=== PATIENT | female | born 1995 | race Caucasian/White ===

== ENCOUNTER 2019-02-05 16:31 | Emergency (ER) | payer MEDICARE ==
[~2019-02-05] VITALS: Ht 167.6 cm; Wt 104.3 kg
--- OUTSIDE RECORDS SUMMARY | 2019-02-05 16:34 | XMS REPORT | Summary of Care ---
Author Author DEBORA ADAN N.P. Organization Unknown Address Unknown Phone Unavailable Care Team Providers Care Log Cooker Name Role Phone DEBORA ADAN N.P. Unavailable Unavailable Unavailable Unavailable Functional Status Name Dates Details Functional status health issues are not documented Status: Name Dates Details Cognitive status health issues are not documented Status: Problems Name Dates Details Possible , not yet confirmed (V72.40, Z32.00) Status: Active Panic disorder (300.01, F41.0) Status: Active Bipolar affective disorder, currently depressed, moderate (296.52, F31.32) Status: Active Severe dysmenorrhea (625.3, N94.6) Status: Active Surveillance of other contraceptive method (V25.49, Z30.49) Status: Active Major depressive disorder with single episode, 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 Quantity: 30 ELDER-FOSTER N.P., DEBORA * Start : 14-Aug-2017 Active Microgestin 1.5/30 1.5-30 MG-MCG Oral Tablet TAKE 1 TABLET BY MOUTH DAILY DIRECTED * Quantity: 21 Refills: 5 ELDER-FOSTER N.P., DEBORA * Start : 18-May-2017 Active buPROPion HCl ER (XL) 150 MG Oral Tablet Extended Release 24 Hour 1 tablet daily * Quantity: 30 Refills: 3 ELDER-FOSTER N.P., DEBORA * Start : 19-Jan-2018 Active clonazePAM 0.5 MG Oral Tablet TAKE 1/2- 1 TABLET BY MOUTH TWICE A DAY NEEDED * Quantity: 60 Refills: 1 ELDER-FOSTER N.P., DEBORA * Start : 19-Jan-2018 Active Allergies and Adverse Reactions Name Dates Details morphine (Allergy) Reaction: Rash Status: Active Procedures Procedure Dates Details History of Oral surgery Completed Immunization Name Dates Details Immunizations not documented Family History Name Dates Details Family history of ovarian cyst (V18.7, Z84.2) Status: Active Name Dates Details Family history of hypertension (V17.49, Z82.49) Status: Active Family history of alcoholism (V17.0, Z81.1) Status: Active Social History Name Dates Details - Status: Name Dates Details Never smoker Vital Signs Date Test Result Details No Known Vitals to report Results Date Description Value Details Results not documented Plan of Care Name Dates Details Planned Observations Planned Goals not documented Interventions Provided Medication Changes* clonazePAM 0.5 MG Oral Tablet - Start Plan* Bipolar- Stop Aripiprazole by decreasing dose by 1/2 a pill tonight and for the next 3 nights and the stop. Decrease Fluoxetine to 40 mg daily and start Bupropion 150 mg daily. Return to clinic 1 month. Get Counseling services at [facility] [phone] * panic disorder- use Clonazepam prior to going to work and as needed for panic. Instructions Name Dates Details Instructions not documented Encounters Appointment; DEBORA ADAN NP Encounter Diagnosis: Problem not documented On: 14-Feb-2017 11:30 Appointment; DEBORA ADAN NP Encounter Diagnosis: Problem not documented On: 18-May-2017 11:30 Appointment; DEBORA ADAN NP Encounter Diagnosis: Problem not documented On: 02-Nov-2017 13:30 Appointment; DEBORA ADAN NP Encounter Diagnosis: Problem not documented On: 09-Nov-2017 10:30 Appointment; DEBORA ADAN NP Encounter Diagnosis: Problem not documented On: 08-Dec-2017 11:30 Appointment; DEBORA ADAN NP Encounter Diagnosis: Problem not documented On: 22-Dec-2017 11:30 Appointment; DEBORA ADAN NP Encounter Diagnosis: Problem not documented On: 19-Jan-2018 11:00
--- OUTSIDE RECORDS SUMMARY | 2019-02-05 16:34 | XMS REPORT | Encounter Summary ---
Author Organization Unknown Address [address] [place] [address] Phone [phone] Reason for Visit Medical Complaint Instructions 1. Acute upper respiratory infection upper respiratory infection (cold): care instructions fluticasone 50 mcg/actuation nasal spray,suspension Bromfed DM 2 mg-30 mg-10 mg/5 mL syrup rapid strep group A, throat 2. Feeling feverish rapid flu (A+B) 3. Body mass index 30+ - obesity A healthy lifestyle: care instructions Discussion Note: None recorded. Plan of Care Patient Instructions - Promote drainage by avoiding irritants. - Saline irrigation of sinuses - Humidified air can improve mucus clearance - Increase fluids - Analgesics for pain and fever as needed Seek care with PCP/Urgent Care/ER or return to [facility] if symptoms worsen. Reminders Provider Appointments None recorded. Lab Rapid Strep Group a, Throat 11/15/2017 [facility] Rapid Flu (A+B) 11/15/2017 [facility] Referral None recorded. Procedures None recorded. Surgeries None recorded. Imaging None recorded. Medications Name Start Date Bromfed DM 2 mg-30 mg-10 mg/5 mL syrup Take 10 mL every 4 hours by oral route as needed. fluoxetine 20 mg capsule TK ONE C PO D fluoxetine 40 mg capsule fluticasone 50 mcg/actuation nasal spray,suspension [place] 1 spray every day by intranasal route. Microgestin 1.5/30 (21) 1.5 mg-30 mcg tablet Medications Administered None recorded. Vitals Height Weight BMI Blood Pressure 5 ft 6 in 212 lbs 34.2 kg/m2 118/80 mm[Hg] Lab Results Date Name Specimen Result Interpretation Description Value Range Status Address Rapid Flu (A+B) Influenza a negative [facility]: [address] [place] [address] Influenza B negative [facility]: [address] [place] [address] Rapid Strep Group a, Throat Result negative [facility]: [address] [place] [address] Swab Location Left and Right tonsillar pillars [facility]: [address] [place] [address] Allergies Code Code System Name Reaction Severity Status Onset 7052 RxNorm Morphine Flushing Moderate Active Problems No Known Problems Procedures Date Name Performed by Tonsillectomy and Adenoidectomy Information not available Vaccine List Vaccine Type influenza, injectable, quadrivalent 05/09/2017 Tdap 07/09/2011 Social History Smoking Status Never Smoker Past Encounters 11/15/2017 Acute Upper Respiratory Infection; Feeling Feverish; Body Mass Index 30+ - Obesity Maria Elena Derek, [facility]-C: [address] [place] [address], Ph. History of Present Illness Oplok-Sbailefrdg-Pznxsdh Reported By: Patient HPI: Location: head/sinuses, throat. Quality: productive cough, sore throat, colored phlegm, nasal/sinus congestion. Duration: 2days. Onset/Timing: sudden. Context: no sick contacts, no foreign travel, non-smoker. Modifying factors: OTC medication; has been on antibiotics for what seems like "every other month or every 2 months". had 1 pill of augmentin left over and took it without improvement. Associated Symptoms: no shortness of breath, no wheezing, no change in number of pillows needed to sleep at night, no sweats, no significant weight gain, no significant weight loss, no morning cough, no vomiting, no diarrhea, no rash, no nausea, no fever, no headache, yellow sputum, fatigue, sore throat, fever, muscle aches; ear pain Review of Systems:ROS as noted in the HPI Review of Systems Basic Reported By: Patient Physical Exam Adult Basic, Adult Female Complete, 14-21 Yr Females Reported By: Patient Constitutional: General Appearance: healthy-appearing, well-nourished, well-developed. Level of Distress: NAD. Ambulation: ambulating normally Psychiatric: Mental Status: active and alert. Orientation: to time, to place, to person Eyes: Lids and Conjunctivae: non-injected, no discharge, no pallor Fps-Tckg-Vztwa-Throat: Ears: no lesions on external ear, no outer ear tenderness, EACs clear, TM opacified. Hearing: no hearing loss. Nose: no lesions on external nose, nares patent, no septal deviation, nasal passages clear, no sinus tenderness, nasal discharge--rhinorrhea, post nasal drip. Lips, Teeth, and Gums: no mouth or lip ulcers, no bleeding gums, normal dentition. Oropharynx: moist mucous membranes, no exudates, erythema, tonsils absent Lungs: Respiratory effort: no dyspnea, no tachypnea, no use of accessory muscles, no intercostal retractions. Auscultation: breath sounds normal Cardiovascular: Heart Auscultation: RRR, no murmurs
--- OUTSIDE RECORDS SUMMARY | 2019-02-05 16:34 | XMS REPORT ---
Author Author [facility] Address Unknown Phone Unavailable Care Team Providers Care Mechanical Service Specialist Name Role Phone Unavailable Unavailable Payers Payer Name Policy Type Policy Number Effective Date Expiration Date Problems This patient has no known problems. Allergies, Adverse Reactions, Alerts This patient has no known allergies or adverse reactions. Medications This patient has no known medications.
--- OUTSIDE RECORDS SUMMARY | 2019-02-05 16:34 | XMS REPORT | Encounter Summary ---
Author Organization Unknown Address [address] [place] [address] Phone [phone] Reason for Visit Medical Complaint Instructions 1. Gastroenteritis gastroenteritis: care instructions ondansetron 4 mg disintegrating tablet Discussion Note Pt in NAD, understands all information provided Plan of Care Patient Instructions Pt will take meds as prescribed with 8oz glass of water. And consume OTC pedialyte to prevent dehydration. Please seek care (PCP, Urgent Care, ER) or return to [facility] if symptoms get worse or do not resolve in 1 week. Reminders Provider Appointments None recorded. Lab None recorded. Referral None recorded. Procedures None recorded. Surgeries None recorded. Imaging None recorded. Medications Name Start Date ondansetron 4 mg disintegrating tablet Take 1 tablet every 8 hours by oral route as needed for 5 days. Medications Administered None recorded. Vitals Height Weight Blood Pressure 5 ft 6 in 118/80 mm[Hg] Lab Results None recorded. Allergies Code Code System Name Reaction Severity Status Onset 7052 RxNorm Morphine Flushing Moderate Active Problems No Known Problems Procedures Date Name Performed by Tonsillectomy and Adenoidectomy Information not available Vaccine List Vaccine Type influenza, injectable, quadrivalent 05/09/2017 Tdap 07/09/2011 Social History Smoking Status Never Smoker Past Encounters 10/08/2018 Gastroenteritis Henny Price NP-C: [address] [place] [address], Ph. History of Present Illness Oqqalq-Siuprkpf-Yvetwjat / Abdominal Pain Reported By: Patient HPI: Quality: watery. Severity: moderate. Onset/Timin-3 times a day. Context: no one else with similar symptoms, no recent camping, no recent picnic, no possible food sources, no recent travel, possible food source. Associated Symptoms: no excess gas, no rash, no joint pain, no weight loss, no heartburn, no blood in stool, no mucus in stool, no black or tarry stools, no nutrient deficiency, no feeling of fullness/mass in throat, no muscle aches, no bitter taste in the mouth, no difficulty swallowing (dysphagia), abdominal pain, fever/chills, nausea, vomiting, weakness, headache Review of Systems:ROS as noted in the HPI Review of Systems Basic Reported By: Patient Physical Exam Adult Basic, Adult Female Complete, 14-21 Yr Females Reported By: Patient Constitutional: General Appearance: healthy-appearing, well-nourished, well-developed. Level of Distress: NAD. Ambulation: ambulating normally Psychiatric: Mental Status: active and alert, normal affect, normal mood. Orientation: to time, to place, to person Abdomen: Bowel Sounds: normal. Inspection and Palpation: epigastric tenderness, RLQ tenderness. Liver: non-tender, no hepatomegaly. Spleen: non-tender, no splenomegaly. Hernia: none palpable. Palpation: (normal) bowel sounds
--- OUTSIDE RECORDS SUMMARY | 2019-02-05 16:34 | XMS REPORT ---
Author Author Admin, [place] Organization [facility] Address Unknown Phone Unavailable Allergies, Adverse Reactions, Alerts Allergy Name Reaction Description Start Date Severity Status Provider Allergies Unknown Conditions or Problems Problem Name Problem Code Onset Date Status Entry Date Provider Comment Standard Description Annotate Problems Unknown Medication List Medication Instructions Start Date Stop Date Generic Name NDC Status Provider Patient Instruction Drug Treatment Unknown - unknown Diagnostic Results Date Name Value Unit Range Description Internal Other: - Chemistry beta HCG, urine, semiquantitative negative
--- OUTSIDE RECORDS SUMMARY | 2019-02-05 16:34 | XMS REPORT | Continuity of Care Document ---
Author Author [employer] Address Unknown Phone Unavailable Care Team Providers Care Home Restoration Service Supervisor Name Role Phone [employer] Unavailable Unavailable Problems Problem Status Onset Date Classification Date Reported Comments Source Gastroenteritis 10/09/2018 Diagnosis 10/09/2018 [facility] Body mass index 30+ - obesity 11/15/2017 Diagnosis 11/15/2017 [facility] Feeling feverish 11/15/2017 Diagnosis 11/15/2017 [facility] Acute upper respiratory infection 11/15/2017 Diagnosis 11/15/2017 [facility] Acute sinusitis 04/17/2017 Diagnosis 04/17/2017 [facility] Acute pharyngitis 04/17/2017 Diagnosis 04/17/2017 [facility] Cough 04/17/2017 Diagnosis 04/17/2017 [facility] Medications Medication Details Route Status Patient Instructions Ordering Provider Order Date Source Amoxicillin 875 MG / Clavulanate 125 MG Oral Tablet amoxicillin 875 mg-potassium clavulanate 125 mg tablet Take 1 tablet every 12 hours by oral route with meals for 10 days. Active [facility] benzonatate 100 MG Oral Capsule benzonatate 100 mg capsule Take 1 capsule 3 times a day by oral route as needed for 10 days. Active [facility] Fluticasone propionate 0.05 MG/ACTUAT Metered Dose Nasal [place] fluticasone 50 mcg/actuation nasal spray,suspension [place] 1 spray every day by intranasal route. Active [facility] Fluoxetine 20 MG Oral Capsule [Prozac] Prozac 20 mg capsule Take 1 capsule every day by oral route. Active [facility] Ondansetron 4 MG Disintegrating Oral Tablet ondansetron 4 mg disintegrating tablet Take 1 tablet every 8 hours by oral route as needed for 5 days. Active [facility] Brompheniramine Maleate 0.4 MG/ML / Dextromethorphan Hydrobromide 2 MG/ML / Pseudoephedrine Hydrochloride 6 MG/ML Oral Solution [Bromfed DM] Bromfed DM 2 mg-30 mg-10 mg/5 mL syrup Take 10 mL every 4 hours by oral route as needed. Active [facility] Fluoxetine 20 MG Oral Capsule fluoxetine 20 mg capsule TK ONE C PO D Active [facility] Fluoxetine 40 MG Oral Capsule fluoxetine 40 mg capsule Active [facility] Ethinyl Estradiol 0.03 MG / norethindrone acetate 1.5 MG Oral Tablet Microgestin 1.5/30 (21) 1.5 mg-30 mcg tablet Active [facility] Drug Treatment Unknown - unknown Active [facility] Allergies, Adverse Reactions, Alerts Substance Category Reaction Severity Reaction type Status Date Reported Comments Source Morphine Flushing Moderate Allergy to substance 04/17/2017 [facility] Allergies Unknown propensity to adverse reactions [facility] Immunizations Immunization Date Given Site Status Last Updated Comments Source influenza, injectable, quadrivalent 05/09/2017 completed [facility] Tdap 07/09/2011 completed [facility] Results Order Name Results Value Reference Range Date Interpretation Comments Source Influenza A negative 11/15/2017 [facility] Influenza B negative 11/15/2017 [facility] RESULT negative 11/15/2017 [facility] SWAB LOCATION Left and Right tonsillar pillars 11/15/2017 [facility] beta HCG, urine, semiquantitative negative 10/23/2017 [facility] RESULT negative 04/17/2017 [facility] SWAB LOCATION Left and Right tonsillar pillars 04/17/2017 [facility] Influenza A negative 04/17/2017 [facility] Influenza B negative 04/17/2017 [facility] Pathology Reports No Data Provided for This Section Diagnostic Reports No Data Provided for This Section Consultation Notes No Data Provided for This Section Discharge Summaries No Data Provided for This Section History and Physicals No Data Provided for This Section Vital Signs Vital Sign Value Date Comments Source Diastolic (mm Hg) 80 10/08/2018 [facility] Height 66 10/08/2018 [facility] Systolic (mm Hg) 118 10/08/2018 [facility] Diastolic (mm Hg) 80 11/15/2017 [facility] Height 66 11/15/2017 [facility] Systolic (mm Hg) 118 11/15/2017 [facility] Weight 212 11/15/2017 [facility] Diastolic (mm Hg) 78 04/17/2017 [facility] Height 66 04/17/2017 [facility] Systolic (mm Hg) 118 04/17/2017 [facility] Weight 210 04/17/2017 [facility] Encounters Location Location Details Encounter Type Encounter Number Reason For Visit Attending Provider ADM Date DC Date Status Source [place] - [facility] - [id number] Samantha [place], ELECTRO MECHANICAL TECHNICIAN: [address] [place] [address], Ph. [id number] Samantha Faiza 04/17/2017 [facility] [place] - [facility] - [id number] Maria Elena Derek, INSTRUMENT TECHNICIAN-C: [address] [place] [address], Ph. [phone] [id number] Maria Elena Derek 11/15/2017 [facility] [place] - [facility] - [id number] Henny Price, ELECTRO MECHANICAL TECHNICIAN-C: [address] [place] [address], Ph. [id number] Henny Price 10/08/2018 [facility] Procedures Procedure Code Date Perfomer Comments Source Tonsillectomy and Adenoidectomy [facility] Assessment and Plan No Data Provided for This Section Plan of Care No Data Provided for This Section Social History Social History Date Source Smoking Status Never Smoker 04/17/2017 [facility] Family History No Data Provided for This Section Advance Directives No Data Provided for This Section Functional Status No Data Provided for This Section
--- OUTSIDE RECORDS SUMMARY | 2019-02-05 16:34 | XMS REPORT | Encounter Summary ---
Author Organization Unknown Address [address] [place] [address] Phone [phone] Reason for Visit Medical Complaint Instructions 1. Acute sinusitis sinusitis: care instructions fluticasone 50 mcg/actuation nasal spray,suspension amoxicillin 875 mg-potassium clavulanate 125 mg tablet rapid flu (A+B) 2. Acute pharyngitis sore throat: care instructions rapid strep group A, throat 3. Cough cough: care instructions benzonatate 100 mg capsule 4. Body mass index 30+ - obesity eating healthy foods: care instructions Discussion Note F/U with your PCP within 3-5 days if s/s continue or worsen. Handout that was given and reviewed and pt verbalized understanding. For worsenening symptoms or shortness/ chest pain develop F/U with ER ISAAK. Plan of Care Patient Instructions Take charge of your health handout given and discussed. Reminders Provider Appointments None recorded. Lab Rapid Flu (A+B) 04/17/2017 [facility] Rapid Strep Group a, Throat 04/17/2017 [facility] Referral None recorded. Procedures None recorded. Surgeries None recorded. Imaging None recorded. Medications Name Start Date amoxicillin 875 mg-potassium clavulanate 125 mg tablet Take 1 tablet every 12 hours by oral route with meals for 10 days. benzonatate 100 mg capsule Take 1 capsule 3 times a day by oral route as needed for 10 days. fluticasone 50 mcg/actuation nasal spray,suspension [place] 1 spray twice a day by intranasal route as directed. Prozac 20 mg capsule Take 1 capsule every day by oral route. Medications Administered None recorded. Vitals Height Weight BMI Blood Pressure 5 ft 6 in 210 lbs 33.9 kg/m2 118/78 mm[Hg] Lab Results Date Name Specimen Result Interpretation Description Value Range Status Address Rapid Strep Group a, Throat Result negative [facility]: [address] [place] [address] Swab Location Left and Right tonsillar pillars [facility]: [address] [place] [address] Rapid Flu (A+B) Influenza a negative [facility]: [facility] Influenza B negative [facility]: [facility] Allergies Code Code System Name Reaction Severity Status Onset 7052 RxNorm Morphine Flushing Moderate Active Problems None recorded. Procedures Date Name Performed by Tonsillectomy and Adenoidectomy Information not available Vaccine List None recorded. Social History Smoking Status Never Smoker Past Encounters 04/17/2017 Acute Sinusitis; Acute Pharyngitis; Cough; Body Mass Index 30+ - Obesity Samantha Kendall, [employer] [facility]: [address] [place] [address], Ph. History of Present Illness Erumz-Quzcjthzdd-Mjrnonh Reported By: Patient HPI: Location: head/sinuses, throat. Quality: sore throat, nasal/sinus congestion, dry cough. Duration: 7days. Severity: moderate. Onset/Timing: gradual. Context: no sick contacts, no foreign travel, non-smoker. Modifying factors: OTC medication. Associated Symptoms: no sputum production, no shortness of breath, no wheezing, no change in number of pillows needed to sleep at night, no sweats, no significant weight gain, no significant weight loss, no morning cough, no vomiting, no diarrhea, no rash, no nausea, no fever, sore throat, muscle aches, headache; chills Review of Systems Basic Reported By: Patient Gkyl-Pqyo-Umopq-Throat: Ears: ear pain Neurologic: Neurologic: no dizziness Physical Exam Adult Basic, Adult Female Complete, 14-21 Yr Females Reported By: Patient Constitutional: General Appearance: obese. Level of Distress: NAD. Ambulation: ambulating normally Psychiatric: Mental Status: active and alert. Orientation: to time, to place, to person Eyes: Lids and Conjunctivae: non-injected, no discharge, no pallor. Pupils: PERRLA. Sclerae: non-icteric Qil-Mkus-Lebvh-Throat: Ears: no lesions on external ear, no outer ear tenderness, EACs clear, TMs clear. Hearing: no hearing loss. Nose: no lesions on external nose, nares patent, no septal deviation, nasal passages clear, sinus tenderness, nasal discharge--rhinorrhea, post nasal drip. Lips, Teeth, and Gums: no mouth or lip ulcers. Oropharynx: moist mucous membranes, no exudates, erythema, tonsils absent Neck: Neck: supple. Lymph Nodes: anterior cervical LAD Lungs: Respiratory effort: no dyspnea, no tachypnea, no use of accessory muscles, no intercostal retractions. Auscultation: breath sounds normal Cardiovascular: Heart Auscultation: RRR, no murmurs Neurologic: Gait and Station: normal gait, normal station
[2019-02-05 17:40] LABS: BASOPHILS # (AUTO) 0.1 (0.0-0.1); BASOPHILS % 0.5 % (0.0-1.0); EOSINOPHILS # (AUTO) 0.1 (0.0-0.4); EOSINOPHILS % 1.2 % (0.0-6.0); HEMATOCRIT 37.4 % (34.2-44.1); HEMOGLOBIN 12.5 g/dL (12.0-16.0); LYMPHOCYTES % 21.4 % (18.0-39.1); MEAN CORPUSCULAR HEMOGLOBIN 29.1 pg (28-32); MEAN CORPUSCULAR HGB CONC 33.4 g/dL (31-35); MONOCYTES # (AUTO) 0.6 (0.2-0.8); MONOCYTES % 6.2 % (4.4-11.3); NEUTROPHILS # (AUTO) 6.6 (2.1-6.9); NEUTROPHILS % 70.2 % (38.7-80.0); PLATELET COUNT 258 x10e3/uL (140-360); RED CELL DISTRIBUTION WIDTH 13.4 % (11.7-14.4)
[2019-02-05 17:41] LABS: BILIRUBIN,URINE NEGATIVE (NEGATIVE); CLARITY,URINE CLEAR (CLEAR); COLOR,URINE YELLOW (YELLOW); KETONES,URINE TRACE (NEGATIVE); LEUKOCYTE ESTERASE ,URINE NEGATIVE (NEGATIVE); NITRITE,URINE NEGATIVE (NEGATIVE); PROTEIN,URINE DIPSTICK NEGATIVE (NEGATIVE); URINE UROBILINOGEN 0.2 mg/dL (0.2 - 1)
[2019-02-05 17:58] LABS: BACTERIA,URINE RARE /HPF; EPITHELIAL CELLS,URINE FEW /LPF; RBC,URINE 0-5 /HPF (0-5)
[2019-02-05 18:00] LABS: ALANINE AMINOTRANSFERASE 26 IU/L (0-55); ALBUMIN/GLOBULIN RATIO 1.2 (0.8-2.0); ALKALINE PHOSPHATASE 73 IU/L (40-150); ANION GAP 15.8 mmol/L (8-16); BLOOD UREA NITROGEN < 5 mg/dL (7-26); CALCIUM 9.6 mg/dL (8.4-10.2); CARBON DIOXIDE 20 mmol/L (22-29); CHLORIDE 103 mmol/L (98-107); EST GLOMERULAR FILTRATION RATE > 60 ML/MIN (60-); GLUCOSE 86 mg/dL (74-118); POTASSIUM 3.8 mmol/L (3.5-5.1); SODIUM 135 mmol/L (136-145)
[2019-02-05 18:03] LABS: BUN/CREATININE RATIO 8 (6-25)
[2019-02-05 18:24] LABS: HCG,QUANTITATIVE 51701.89 mIU/mL (0-10)
--- NOTE | 2019-02-05 19:00 | Diagnostic Imaging Report ---
TECHNIQUE: Transvaginal and transabdominal ultrasound imaging of the pelvis was performed. Transvaginal images were medically indicated to better evaluate the fetus. Color Doppler evaluation was utilized to supplement the evaluation. HISTORY: Spotting, unsure dates, COMPARISON: None available. DISCUSSION: UTERUS: Size: 8 x 5.1 x 6 cm. Cervix: Unremarkable. Endometrium: Intrauterine . [place] rump length: 1.7 cm Gestational sac: 2.7 cm Yolk sac: 0.3 cm heart tone: 177.8] per minute. OVARIES/ADNEXA: The right ovary measures 2.2 x 1.7 x 1.4 cm. The left ovary is not visualized, likely obscured by regional bowel gas. PELVIS: No free fluid. IMPRESSION: Viable intrauterine , 8 weeks by ultrasound criteria. Signed by: Dr. Manuelito Carrasco D.O., M.M.M. on 02/05/2019 6:56 PM
[2019-02-05] MEDS ORDERED: ONDANSETRON HCL 4 MG ORAL DISINTEGRATING TAB ONE (20:44)
[2019-02-05] MEDS ORDERED: HYDROCODONE/APAP 7.5MG-325MG 1 EA TAB ONE (20:45)
[2019-02-05] MEDS: ONDANSETRON HCL 4 MG ORAL DISINTEGRATING TAB PO ONE (21:06)
[2019-02-05] MEDS: HYDROCODONE/APAP 7.5MG-325MG 1 EA TAB PO PRN (21:06)
[2019-02-05 22:31] VITALS: BP 121/84
== END 2019-02-05 22:33 | disposition home or self-care (01) ==
LOC: ER 16:31
DX: O20.0 Threatened abortion (principal); Z3A.16 16 weeks gestation of pregnancy
CPT/HCPCS: 36415; 76817; 80053; 81001; 84702; 85025; 86900; 87086; 99284; Q0162